=== PATIENT | female | born 1995 | race Caucasian/White ===

== ENCOUNTER 2016-10-11 20:21 | Emergency (ER) | payer BC ==
[~2016-10-11] VITALS: Ht 162.6 cm; Wt 51.0 kg
[2016-10-11 20:25] VITALS: Ht 162.6 cm; Wt 51.0 kg
[2016-10-11] MEDS ORDERED: ONDANSETRON 4 MG INJ IV STA (20:57)
[2016-10-11] MEDS ORDERED: KETOROLAC 15 MG INJ IM STA (20:57)
[2016-10-11] MEDS ORDERED: SOD CHLORIDE 0.9% 1,000 ML IV ONE (21:00)
[2016-10-11] MEDS ORDERED: PANTOPRAZOLE 40 MG INJ IV ONE (21:00)
[2016-10-11 22:08] LABS: ADD UMIC YES; UR BILIRUBIN (Dip) NEGATIVE (NEGATIVE); UR BLOOD (Dip) 2+ (NEGATIVE); UR CLARITY SLIGHTLY CLOUDY (CLEAR); UR COLOR YELLOW (YELLOW); UR GLUCOSE (Dip) NEGATIVE (NEGATIVE); UR KETONES (Dip) NEGATIVE (NEGATIVE); UR LEUKOCYTE ESTERASE (Dip) NEGATIVE (NEGATIVE); UR NITRITE (Dip) NEGATIVE (NEGATIVE); UR TOTAL PROTEIN (Dip) NEGATIVE (NEGATIVE); UR UROBILINOGEN (Dip) 0.2 E.U./dL (0.1-1.0)
[2016-10-11 22:31] LABS: UR BACTERIA FEW; UR MUCUS MANY; UR SQUAMOUS EPITHELIAL CELL FEW; URINE RBCS >50 /HPF (0)
[2016-10-11] MEDS ORDERED: ONDA4TAB8 PO ×2 (22:59→23:00)
--- NOTE | 2016-10-11 22:59 | ERD ---
ER Documentation Chief Complaint Date/Time DATE: 10/11/16 TIME: 22:55 Chief Complaint ABD PAIN X 1 HOUR WITH N/V HPI This pleasant 21-year-old female presents to emergency department today with abdominal pain. Patient reports that she was at a bridal shower several hours ago and ate many different types of food. Patient reports she developed abdominal pain about 1-2 hours after eating. Patient reports pain is stabbing, and sharp located left upper quadrant, patient reports nausea, vomiting, and pain. States she has vomited 3 times in the last time with yellow bile. Patient has not been able to drink any fluids for several hours, reports feeling dehydrated, weak, denies fever, chills, body aches, possibility of , patient states she is currently menstruating. History of appendectomy at age 6. She denies constipation, dysuria, or diarrhea. ROS All systems reviewed and are negative except as per history of present illness. Medications Home Meds Active Scripts Ondansetron Hcl* (Zofran*) 4 Mg Tablet, 4 MG PO Q6H for NAUSEA AND/OR VOMITING, #10 TAB Prov:MANUELITOZHANG 10/11/16 Allergies Allergies: Coded Allergies: No Known Drug Allergies (Verified Allergy, Unknown, 10/11/16) PMhx/Soc History of Surgery: No Anesthesia Reaction: No Hx Neurological Disorder: No Hx Respiratory Disorders: No Hx Cardiac Disorders: No Hx Psychiatric Problems: No Hx Miscellaneous Medical Probl: No Hx Alcohol Use: No Hx Substance Use: No Hx Tobacco Use: No Smoking Status: Never smoker Physical Exam Vitals Vital Signs Date Time Temp Pulse Resp B/P Pulse Ox O2 Delivery O2 Flow Rate FiO2 10/11/16 23:14 98.6 68 16 111/65 96 10/11/16 20:25 96.0 96 22 141/85 100 Vitals stable triage notes reviewed Physical Exam Const: Obvious discomfort, side lying on gurney, no acute distress Head: Atraumatic Eyes: Normal Conjunctiva PERRLA, EOMI ENT: Normal External Ears, Nose and Mouth mucous membranes moist. Neck: Resp: Chest rise and fall symmetrically, no respiratory distress Cardio: Regular rate and rhythm, no murmurs Abd: Soft, generalized tenderness, no rebound tenderness, no CVA tenderness. Skin: Back: No midline or flank tenderness Ext: Neur: Awake and alert Psych: Normal Mood and Affect Results 24 hrs Laboratory Tests Test 10/11/16 21:15 Urine Color YELLOW Urine Clarity SLIGHTLY CLOUDY Urine pH 6.5 Urine Specific [place] 1.020 Urine Ketones NEGATIVE Urine Nitrite NEGATIVE Urine Bilirubin NEGATIVE Urine Urobilinogen 0.2 E.U./dL Urine Leukocyte Esterase NEGATIVE Urine Microscopic RBC >50/HPF Urine Microscopic WBC NONE SEEN/HPF Urine Squamous Epithelial Cells FEW Urine Bacteria FEW Urine Mucus MANY Urine Hemoglobin 2+ Urine Glucose NEGATIVE% Urine Total Protein NEGATIVE Current Medications Medications (Trade) Dose Ordered Sig/Cindy Route PRN Reason Start Time Stop Time Status Last Admin Dose Admin Sodium Chloride (NS) 1,000 ml @ 1,000 mls/hr Q1H ONCE IV 10/11/16 21:00 10/11/16 21:59 DC 10/11/16 21:21 Ondansetron HCl (Zofran Inj) 4 mg ONCE STAT IV 10/11/16 20:57 10/11/16 21:04 DC 10/11/16 21:21 Ketorolac Tromethamine (Toradol) 15 mg ONCE STAT IM 10/11/16 20:57 10/11/16 21:04 DC 10/11/16 21:30 Pantoprazole (Protonix Iv) 40 mg ONCE ONCE IV 10/11/16 21:00 10/11/16 21:04 DC 10/11/16 21:21 Interpretation microscopic hematuria +2 present consistent with menstruation Procedures/MDM This pleasant 21-year-old female brought into emergency department by mother for nausea, vomiting, and abdominal pain after eating food at a bridal shower. Symptoms started approximately 1-1/2-2 hours after eating. Patient reports cramping stabbing abdominal pain predominantly localized in the left upper quadrant, also reports menstruation. Vomiting without diarrhea. Appendicitis, biliary colic, pancreatitis, cholelithiasis, bowel obstruction unlikely, physical exam and history suspicious for gastroenteritis. Patient treated in emergency department with 1 L of normal saline, IV 40 of Protonix, 4 mg IV Zosyn. And Toradol for pain. Patient reassessed after an hour and a half with improvement of symptoms. Patient is able to tolerate fluids without vomiting prior to discharge. Has no dizziness with standing. Is discharged home with Zofran use as needed nausea vomiting, clear liquid diet advance as tolerated. I feel the patient is stable for discharge at this time with outpatient management and follow-up with primary care physician. I have discussed results , examination findings, the treatment plan with the patient and family present prior to discharge. Indications for emergent reevaluation, side effects of medication were also discussed. All questions were answered. Patient verbalizes understanding and agrees with plan of care. Departure Diagnosis: Primary Impression: Gastroenteritis Condition: Good Patient Instructions: Food Poisoning (6Yr-Adult) Additional Instructions: Thank you for for coming to [facility] for your care today. Please ask your nurse or provider if you have questions about your care today and do not leave until all your questions have been answered. Please use any medications given as directed and follow-up with your doctor (or the doctor you were referred to) in the next 2-3 days. If you do not have a primary care doctor you may follow up at the [facility] (listed below). You may also use motrin and tylenol as needed for fever and/or pain unless instructed otherwise by your provider or nurse. Indications for more urgent follow-up have been discussed, but you may return to the Emergency Department at ANY time for any worrisome or worsening symptoms. If you have abdominal pain, please know that no test or exam you received is perfect and you should follow up within 8 hours for continued pain. If you had any imaging studies today, such as an X-Ray or CT Scan, these studies will be reviewed later by a radiologist. You will be called if there are important findings that were not identified today, so make sure the contact information you provided at registration is correct. If you received any narcotic pain control medicine today, such as Vicodin, Morphine or Dilaudid, your coordination and judgment may be affected for a number of hours. Please do not drive or operate heavy machinery, and you may want someone to assist you at home. If you were given a prescription for narcotic medication, be aware that it is very addictive- use sparingly and only if necessary. ZHANG BILLINGS Oct 11, 2016 22:59
[2016-10-11 23:14] VITALS: BP 111/65; PULSE 68; RESP 16; TEMP 98.6
== END 2016-10-11 23:15 | disposition home or self-care (01) ==
LOC: FTE 20:21
DX: K52.9 Noninfective gastroenteritis and colitis, unspecified (principal)
CPT/HCPCS: 81001; 96361; 96372; 96374; 96375; C9113; J1885; J2405; J7030; Z7502